=== PATIENT | male | born 1980 | race Caucasian/White ===

== ENCOUNTER 2017-07-13 15:46 | Emergency (ER) | payer SELFPAY ==
[2017-07-13] MEDS ORDERED: Ketorolac 30 MG/ML SDV IVPUSH ONE (15:56)
[2017-07-13] MEDS ORDERED: Tamsulosin 0.4 MG Cap.ER PO ONE (16:11)
--- NOTE | 2017-07-13 16:28 | EDM.PDOC ---
ED HPI GENERAL MEDICAL PROBLEM - General Chief Complaint: Genitourinary Problem Stated Complaint: POSSIBLE KIDNEY STONES Time Seen by Provider: 07/13/17 16:00 Source of Information: Reports: Patient, Family History Limitations: Reports: No Limitations - History of Present Illness INITIAL COMMENTS - FREE TEXT/NARRATIVE: 36-year-old male with known history of renal stones and renal colic was traveling through town on his way home when he developed very sudden and intense left flank pain radiating to the left groin. He felt an urgency to urinate, nauseated but no vomiting. Symptoms are exactly as his previous stones , the last one was a year ago. He was going to try to make it home but didn't think he could make it, he has 40 miles to go. No shortness of breath or fever, no symptoms before his pain started. Onset: Sudden Duration: Hour(s): (Within the last hour) Location: Reports: Other (left flank) Severity: Severe Associated Symptoms: Reports: Other (Nausea but no vomiting). Denies: Fever/ Chills Left Flank Pain Score (Numeric/FACES): 8 - Related Data Allergies Allergy/AdvReac Type Severity Reaction Status Date / Time No Known Allergies Allergy Verified 07/13/17 15:57 Home Meds: Home Meds NK [No Known Home Meds] 07/13/17 [History] Past Medical History Genitourinary History: Reports: Renal Calculus - Past Surgical History Musculoskeletal Surgical History: Reports: Shoulder Surgery Social & Family History - Caffeine Use Caffeine Use: Reports: Soda - Recreational Drug Use Recreational Drug Use: No ED ROS GENERAL - Review of Systems Review Of Systems: See Below Constitutional: Denies: Fever, Chills HEENT: Reports: No Symptoms Respiratory: Reports: No Symptoms Cardiovascular: Reports: No Symptoms GI/Abdominal: Reports: Nausea. Denies: Abdominal Pain, Vomiting : Reports: Flank Pain, Urgency Skin: Reports: Diaphoresis Neurological: Reports: No Symptoms ED EXAM, RENAL/ - Physical Exam Exam: See Below Exam Limited By: No Limitations General Appearance: Alert, Moderate Distress Respiratory/Chest: No Respiratory Distress, Lungs Clear Cardiovascular: Regular Rate, Rhythm GI/Abdominal: Non-Tender Back Exam: No: CVA Tenderness (R), CVA Tenderness (L) Neurological: Alert, Oriented Psychiatric: Anxious Course - Vital Signs Last Recorded V/S: Last Vital Signs Temp 96.5 F 07/13/17 15:48 Pulse 71 07/13/17 15:48 Resp 20 07/13/17 15:48 BP 158/98 H 07/13/17 15:48 Pulse Ox 100 07/13/17 15:48 - Orders/Labs/Meds Meds: Medications Discontinued Medications Generic Name Dose Route Start Last Admin Trade Name Darrian PRN Reason Stop Dose Admin Ketorolac Tromethamine 30 mg 07/13/17 15:56 07/13/17 16:07 Toradol IVPUSH 07/13/17 15:57 30 mg ONETIME ONE Administration Tamsulosin HCl 0.4 mg 07/13/17 16:11 07/13/17 16:16 Flomax PO 07/13/17 16:12 0.4 mg ONETIME ONE Administration - Re-Assessments/Exams Free Text/Narrative Re-Assessment/Exam: 07/13/17 16:27 An IV was started the patient was given 30 mg of IV Toradol. He was also given 0.4 mg of oral Flomax. 07/13/17 16:49 30 minutes after the Toradol he felt much better. He was discharged with 10 doses of Vicodin to cover any recurring pain and should recheck with urology in [place] in the next 24-48 hours if not improving satisfactorily. Departure - Departure Time of Disposition: 16:58 Disposition: Home, Self-Care 01 Condition: Good Clinical Impression: Renal colic on left side - Discharge Information Instructions: Renal Colic, [id number] Referrals: PCP,None [Primary Care Provider] - Forms: ED Department Discharge Care Plan Goals: Continue with ibuprofen or naproxen and add stronger pain medications if needed. Stay hydrated and recheck in [place] in the next several days if not improving satisfactorily.
== END 2017-07-13 17:09 | disposition home or self-care (01) ==
LOC: JP.ED 15:46
DX: N23 Unspecified renal colic (principal)
CPT/HCPCS: 96374; 99283; A9270; J1885